=== PATIENT | female | born 1955 | race African-American/Black ===

== ENCOUNTER 2021-08-05 10:04 | Emergency (ER) | payer MEDICARE, OTHER ==
[~2021-08-05] VITALS: Ht 177.8 cm; Wt 152.0 kg
[2021-08-05] MEDS ORDERED: HYDROCODONE/ACETAMINOPHEN 5/325MG TABLET PO STA (17:52)
[2021-08-05] MEDS ORDERED: SODIUM CHLORIDE 0.9% 1,000 ML IV ONE (18:00)
[2021-08-05 18:24] LABS: BASOPHILS % 0.6 % (0.0-2.0); EOSINOPHILS % 0.3 % (0.0-5.0); HEMATOCRIT. 43.3 % (36.0-48.0); MEAN CORPUSCULAR HEMOGLOBIN 24.8 pg (28.0-32.0); MEAN CORPUSCULAR VOLUME 76.8 fL (81.0-99.0); MEAN PLATELET VOLUME 7.2 fl (7.4-10.4); MONOCYTES % 5.4 % (2.0-8.0); NEUTROPHILS % 72.7 % (40.0-76.0); PLATELET 341 x1000/uL (130-400); RED BLOOD CELL COUNT 5.64 mill/uL (4.2-5.4); RED CELL DISTRIBUTION WIDTH 14.8 % (11.6-14.6)
[2021-08-05 18:30] LABS: CHLORIDE 99 mEq/L (98-107)
[2021-08-05 18:39] LABS: CREATINE KINASE 212 IU/L (26-192)
[2021-08-05] MEDS ORDERED: HYDROCODONE/ACETAMINOPHEN 5/325MG TABLET PO ONE (23:45)
[2021-08-06 00:55] VITALS: BP 155/87
== END 2021-08-06 01:16 | disposition short-term general hospital (02) ==
LOC: ER 10:45 → ENRESERV 18:40 → CANRESERV 18:40 → ER 08-06 01:16 → CANBEDREQ 08-06 03:48
DX: R55 Syncope and collapse (principal); M54.50 Low back pain, unspecified; R10.30 Lower abdominal pain, unspecified; I10 Essential (primary) hypertension; Z96.659 Presence of unspecified artificial knee joint; W01.0XXA Fall on same level from slipping, tripping and stumbling without subsequent striking against object, initial encounter; Y93.89 Activity, other specified; Y92.018 Other place in single-family (private) house as the place of occurrence of the external cause
CPT/HCPCS: 36415; 70450; 71045; 74176; 80053; 82550; 85025; 87426; 93005; 96360; 99285; J7030